=== PATIENT | female | born 1940 | race Hispanic/Latino ===

== ENCOUNTER → 2024-06-02 | Outpatient (CLI) | payer OTHER ==
[2024-06-02 12:32] LABS: CREATININE 0.9 mg/dL (0.5-1.0); POTASSIUM 4.1 mmol/L (3.5-5.1)
== END | disposition home or self-care (01) ==
LOC: LAB 08:48
PROVIDERS: ATTEND Internal Medicine Cardiovascular Disease
DX: I10 Essential (primary) hypertension (principal)
CPT/HCPCS: 36415; 80048

== ENCOUNTER → 2024-06-07 | Day surgery (SDC) | payer OTHER ==
[~2024-06-07] MED LIST: IOHEXOL 350 MG/ML 100ML INFUS..BTL IV ONE
--- NOTE | 2024-06-07 14:59 | HMCIMG ---
CT ANGIO NECK HISTORY: Occlusion COMPARISON: None TECHNIQUE: CT angiography of the neck was performed. The study was performed using angiographic technique with maximum intensity projection reconstruction images. FINDINGS: There are degenerative changes of the cervical spine. Parapharyngeal fat planes are preserved bilaterally. The airway is patent. There is a small left thyroid nodule measuring 8 mm. Visualized portion of the lung apices are unremarkable. The common, internal and external carotid arteries are visualized. Approximately 85-90% stenosis is seen of the right internal carotid artery proximally near the carotid bifurcation. There is approximately 80-85% stenosis noted of the left internal carotid artery proximally near the bifurcation. Bilateral carotid bulb calcifications are seen. There is enlargement of the left internal jugular vein measuring 2.1 x 2.2 cm with possible internal thrombus formation. Clinical correlation is recommended. Both vertebral arteries are seen with antegrade flow. IMPRESSION: CTA Neck 1. Atherosclerotic disease. Approximately 85-90% stenosis is seen of the right internal carotid artery proximally near the carotid bifurcation. There is approximately 80-85% stenosis noted of the left internal carotid artery proximally near the bifurcation. Bilateral carotid report was given to the floor. Bulb calcifications are seen. There is enlargement of the left internal jugular vein measuring 2.1 x 2.2 cm with possible internal thrombus formation. Clinical correlation is recommended. Result was given to the critical care team. CT was performed with one or more following dose reduction techniques: automated exposure control, adjustment of the mA and kv according to patient's size, or use of a iterative reconstruction technique.
== END | disposition home or self-care (01) ==
LOC: EDSTATUS 08:00 → EDUNIT# 08:00 → DAH 08:24
PROVIDERS: ATTEND Internal Medicine Cardiovascular Disease
DX: I65.23 Occlusion and stenosis of bilateral carotid arteries (principal); I25.10 Atherosclerotic heart disease of native coronary artery without angina pectoris; M47.812 Spondylosis without myelopathy or radiculopathy, cervical region; I70.90 Unspecified atherosclerosis; E04.1 Nontoxic single thyroid nodule
CPT/HCPCS: 70498; Q9967